=== PATIENT | male | born 1965 | race Caucasian/White ===

== ENCOUNTER 2017-03-21 12:58 | Emergency (ER) | payer MEDICAID ==
[2017-03-21] MEDS ORDERED: Albuterol Nebulizer 2.5mg/3mL HHN ONE ×2 (13:31→13:43)
--- NOTE | 2017-03-21 13:40 | ED Physician Chart ---
ED Chief Complaint/HPI - Patient Information Date Seen:: 03/21/17 Time Seen:: 13:20 Chief Complaint:: cough History of Present Illness:: Patient said cough and congestion for 2 weeks. The sputum has been primarily dark green but less frequently yellow. 2 weeks ago patient had an oral temperature of 100 but not since. Patient had pneumonia one year ago for which he was hospitalized at [facility] for 1 week. Allergies:: Allergies Allergy/AdvReac Type Severity Reaction Status Date / Time No Known Allergies Allergy Verified 03/21/17 13:07 Vitals:: Vital Signs - 8 hr 03/21/17 13:08 Temp 97.3 F HR 78 RR 16 BP 120/90 O2 Sat % 95 Historian:: Patient Review:: Nurse's Note Reviewed ED Review of Systems - Review of Systems General/Constitutional: Fever Skin: Other Head: No headache Eyes: No loss of vision ENT: No earache Neck: No neck pain Cardio Vascular: No chest pain Pulmonary: Cough GI: No nausea, No vomiting, No diarrhea G/U: No dysuria Musculoskeletal: No bone or joint pain, No muscle pain Endocrine: No polyuria, No polydipsia Psychiatric: No prior psych history, No depression, No anxiety Hematopoietic: No bruising, No lymphadenopathy Allergic/Immuno: No urticaria Neurological: No syncope, No focal symptoms ED Past Medical History - Past Medical History Past Medical History: HTN, Other (insomnia) Social History: Other (patient quit smoking 10 years ago; patient quit drinking alcohol 6 months ago; history of smoking amphetamines) Surgical History: other (aortic aneurysm repair; fracture of left patella) Psychiatricy History: None Medication: Reviewed Family Medical History - Family Member Father Ethnicity: Non- Living Status: Hx Family Hypertension: Yes ED Physical Exam - Physical Examination General/Constitutional: Well-developed, well-nourished, Alert, No distress Head: Atraumatic Eyes: Lids, conjuctiva normal, PERRL Skin: Nl inspection, No rash, No skin lesions, No ecchymosis ENMT: External ears, nose nl, TM canals nl, Nasal exam nl, Lips, teeth, gums nl , Oropharynx nl, Tonsils nl Neck: No nuchal rigidity Respiratory: Nl effort/Exclusion Other Respiratory comments:: Prolonged expiratory phase Cardio Vascular: RRR, No murmur, gallop, rubs, NL S1 S2 GI: No tenderness/rebounding/guarding, No organomegaly, No hernia : No CVA tenderness Extremities: Normal digits & nails Neuro/Psych: Alert/oriented, No focal deficits Misc: Normal back ED Assessment - Assessment General Assessment: After the albuterol breathing treatment patient felt slightly better. Auscultation of the chest revealed prolonged expiratory phase and 1 out of 4 expiratory wheezing. ED Septic Shock - . Is Septic Shock (SBP<90, OR Lactate>4 mmol\L) present?: No - <6hrs of presentation: Vital Signs: Vital Signs - 8 hr 03/21/17 13:08 Temp 97.3 F HR 78 RR 16 BP 120/90 O2 Sat % 95 ED Reassessment (Disposition) - Reassessment Reassessment Condition:: Improved - Diagnosis Diagnosis:: Bronchitis; reactive airway disease - Aftercare/Follow up Instructions Aftercare/Follow-Up Instructions:: Refer to Discharge Instructions Medication Prescribed:: Albuterol metered-dose inhaler to use 2 puffs every 4 hours as necessary and a Z -pack to take per instructions. - Patient Disposition Discharge/Transfer:: Home Condition at Disposition:: Stable, Improved ED Discharge Plan - Patient Disposition Instructions: Bronchitis, [id number]
[2017-03-21 14:26] VITALS: BP 120/90
--- NOTE | 2017-03-22 08:00 | Diagnostic Imaging Report ---
Portable chest x-ray Time: 1452 History: Fever Allowing for portable technique the heart size is normal. No focal pulmonary parenchymal processes. No hilar or mediastinal abnormalities. Impression: No acute abnormalities.
== END 2017-03-21 15:00 | disposition home or self-care (01) ==
LOC: ER 12:58
DX: J20.9 Acute bronchitis, unspecified (principal); J45.909 Unspecified asthma, uncomplicated; I10 Essential (primary) hypertension
CPT/HCPCS: 71010-TC; 94640; J7613; Z7502

== ENCOUNTER 2017-05-23 13:03 | Emergency (ER) | payer MEDICAID ==
--- NOTE | 2017-05-23 13:50 | ED Physician Chart ---
ED Chief Complaint/HPI - Patient Information Date Seen:: 05/23/17 Time Seen:: 13:35 Chief Complaint:: wound check History of Present Illness:: Patient was seen here one week ago for trauma of his right knee. X-rays of the right knee and right ankle were taken and were negative. Patient is here for wound check of the abrasions of the right knee. Allergies:: Allergies Allergy/AdvReac Type Severity Reaction Status Date / Time No Known Allergies Allergy Verified 03/21/17 13:07 Historian:: Patient Review:: Nurse's Note Reviewed ED Review of Systems - Review of Systems General/Constitutional: No fever, No chills Skin: Skin lesions Head: No headache Eyes: No loss of vision ENT: No earache Neck: No neck pain, No swelling Cardio Vascular: No chest pain, No palpitations Pulmonary: No SOB GI: No nausea, No vomiting, No diarrhea G/U: No dysuria Musculoskeletal: No back pain Endocrine: No polyuria Psychiatric: Depression Hematopoietic: No bruising Allergic/Immuno: No urticaria Neurological: No syncope, No focal symptoms ED Past Medical History - Past Medical History Past Medical History: Other (depression) Family History: Heart disease, Diabetes Melitus Social History: Non Smoker, No Alcohol Surgical History: other (cataract) Psychiatricy History: Depression Medication: Reviewed Family Medical History - Family Member Father Ethnicity: Non- Living Status: Hx Family Hypertension: Yes ED Physical Exam - Physical Examination General/Constitutional: Well-developed, well-nourished, Alert, No distress Head: Atraumatic Eyes: Lids, conjuctiva normal, PERRL Other Skin comments:: 3 cm crusted abrasion over patella of the right knee; contusions anterior right knee ENMT: External ears, nose nl Neck: No nuchal rigidity Respiratory: Clear to Auscultation, No Wheeze/Rhonchi/Rales Cardio Vascular: RRR, No murmur, gallop, rubs, NL S1 S2 GI: No tenderness/rebounding/guarding : No CVA tenderness Other Extremities comments:: Right knee: Full range of motion; collateral and cruciate ligaments; see above under skin. Right ankle: Swelling over lateral malleolus ED Septic Shock - . Is Septic Shock (SBP<90, OR Lactate>4 mmol\L) present?: No ED Reassessment (Disposition) - Reassessment Reassessment Condition:: Unchanged - Diagnosis Diagnosis:: Wound check; abrasion right knee healing without signs of infection - Aftercare/Follow up Instructions Aftercare/Follow-Up Instructions:: Refer to Discharge Instructions - Patient Disposition Discharge/Transfer:: Home Condition at Disposition:: Stable, Unchanged
--- NOTE | 2017-05-23 14:38 | Diagnostic Imaging Report ---
CHEST X-RAY: AP view INDICATION: Congestion COMPARISON: 03/21/2017 FINDINGS: Chronic lung changes are seen with slight increased right basal lung markings. Heart size is normal. Atherosclerotic disease noted. No focal consolidation or effusions. Degenerative changes of the spine are noted. IMPRESSION: Chronic lung changes. Slight increased right basal lung markings may be due to subsegmental atelectasis versus scarring. No focal consolidation identified. Atherosclerotic vascular disease.
--- NOTE | 2017-05-23 14:49 | ED Physician Chart ---
ED Chief Complaint/HPI - Patient Information Date Seen:: 05/23/17 Time Seen:: 14:15 Chief Complaint:: cough and congestion History of Present Illness:: Patient has had cough, congestion, diaphoresis, nasal stuffiness myalgia for 1 week. He did not take his temperature. He has had diarrhea several times but no vomiting/ Allergies:: Allergies Allergy/AdvReac Type Severity Reaction Status Date / Time No Known Allergies Allergy Verified 05/23/17 14:18 Vitals:: Vital Signs - 8 hr 05/23/17 14:14 Temp 99.1 F HR 86 RR 16 BP 109/75 O2 Sat % 96 Historian:: Patient Review:: Nurse's Note Reviewed ED Review of Systems - Review of Systems General/Constitutional: No fever, No chills Skin: No skin lesions Head: No headache Eyes: No loss of vision ENT: No earache Neck: No neck pain Cardio Vascular: No chest pain Pulmonary: Cough GI: Diarrhea G/U: No dysuria Musculoskeletal: No bone or joint pain Endocrine: No polyuria Psychiatric: No prior psych history Hematopoietic: No bruising Allergic/Immuno: No urticaria Neurological: No syncope ED Past Medical History - Past Medical History Past Medical History: Other (bronchitis) Family History: HTN, Other (brain tumor) Social History: Non Smoker, No Alcohol, Other (quit smoking 5-6 years ago and quit drinking alcohol a few months ago) Surgical History: other (aortic aneurysm repair) Psychiatricy History: None Medication: Reviewed Family Medical History - Family Member Father Ethnicity: Non- Living Status: Hx Family Hypertension: Yes Hx Family Diabetes: Yes ED Physical Exam - Physical Examination General/Constitutional: Well-developed, well-nourished, Alert, No distress Head: Atraumatic Eyes: Lids, conjuctiva normal, PERRL Skin: Nl inspection, No rash ENMT: External ears, nose nl, TM canals nl, Nasal exam nl, Lips, teeth, gums nl Neck: No nuchal rigidity Respiratory: Nl effort/Exclusion, Clear to Auscultation, No Wheeze/Rhonchi/Rales Cardio Vascular: RRR, No murmur, gallop, rubs GI: No tenderness/rebounding/guarding, No organomegaly, No hernia, Normal BS's, Nondistended, No mass/bruits, No McBurney tenderness Extremities: Normal digits & nails Neuro/Psych: Alert/oriented Misc: Normal back ED Labs/Radiology/EKG Results - Lab Results Results: Influenza A and B screen negative - Radiology Results Results: Chest x-ray showed atelectasis versus scarring at the right base. No infiltrate noted. ED Septic Shock - . Is Septic Shock (SBP<90, OR Lactate>4 mmol\L) present?: No - <6hrs of presentation: Vital Signs: Vital Signs - 8 hr 05/23/17 14:14 Temp 99.1 F HR 86 RR 16 BP 109/75 O2 Sat % 96 ED Reassessment (Disposition) - Diagnosis Diagnosis:: acute viral syndrome - Patient Disposition Discharge/Transfer:: Home Condition at Disposition:: Stable, Unchanged
[2017-05-23 16:00] LABS: INF A SCREEN NEG FOR INF A; INF B SCREEN NEG FOR INF B
== END 2017-05-23 16:30 | disposition home or self-care (01) ==
LOC: ER 13:03
DX: B34.9 Viral infection, unspecified (principal)
CPT/HCPCS: 71045-TC; 87804-TC